=== PATIENT | male | born 1990 | race Caucasian/White ===

== ENCOUNTER 2017-03-15 19:13 | Emergency (ER) | payer OTHER ==
[~2017-03-15 19:13] MED LIST: KEFLEX500 MG PO; NORCO 5/325 TAB1 TAB PO; ZITHROMAX250 M1 PO
== END 2017-03-15 21:42 ==
LOC: EDMED 19:13
DX: S91.112A Laceration without foreign body of left great toe without damage to nail, initial encounter (principal); W22.8XXA Striking against or struck by other objects, initial encounter; Y92.828 Other wilderness area as the place of occurrence of the external cause